=== PATIENT | male | born 1940 | race Caucasian/White ===

== ENCOUNTER 2022-09-17 06:47 | Emergency (ER) | payer OTHER ==
--- OUTSIDE RECORDS SUMMARY | 2022-09-17 07:03 | XMS REPORT | Continuity of Care Document ---
:1940 Author Organization [facility] t Address [address] [place] [address] Care Team Providers Name Role Phone [phone] Primary Care Physician Unavailable JACQUE ORDOÑEZ Attending Clinician Unavailable Jef Ashley MD Attending Clinician LEANDRO BATISTA Attending Clinician Unavailable Dewey Attending Clinician Unavailable Harriet Ervin Attending Clinician [phone] ANDRZEJ FIGUEROA Attending Clinician Unavailable ROGERIO PEREIRA Attending Clinician Unavailable ARELI NGUYEN Attending Clinician Unavailable PAMELA LLAMAS Attending Clinician Unavailable TY ECHEVERRIA Attending Clinician Unavailable CINDY REESE Attending Clinician Unavailable ULISES BUENROSTRO Attending Clinician Unavailable Dewey Admitting Clinician Unavailable Payers Payer Name Policy Type Policy Number Effective Date Expiration Date S franky HU[employer]NA CHOICE [id number] 2013 MEDICARE PPO 00:00:00 HUMANA PPO [id number] 2016 00:00:00 [facility] MEDICARE [id number] 2020 ADVANTAGE 00:00:00 [facility] [id number] 2021 (MEDICARE 00:00:00 REPLACEMENT/ADVANT AGE - PPO) Problems Condition Condition Condition Status Onset Resolution Last Treating Co mments Source Name Details Category Date Date Treatment Clinician Date Strain of Strain of Problem Active Aza hannah hamstring Hamstring 8-26 Orth ope tendon Tendon 00:00: dic 00 Sports Medicin e 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) 00:00: Hospita stenosis stenosis 00 l 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 8-10 st emia emia 00:00: Hospita 00 l Essential Essential Disease Active Met hodi hypertensi hypertensi 8-10 st on on 00:00: Hospita 00 l 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 [place] [facility] [place] 00:[facility]: [facility]osp[facility] 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 Allergies, Adverse Reactions, Alerts Allergy Allergy Status Severity Reaction(s) Onset Inactive Treating Comm ents Source Name Type Date Date Clinician ADHESIVE DRUG Active Other 0 MD TAPE-IVANA 5-23 Anderso ICONES 00:00: n 00 ADHESIVE DRUG Active Other 0 MD TAPE-IVANA 5-23 Anderso ICONES 00:00: n 00 ADHESIVE DRUG Active Other MD TAPE-IVANA 5-23 Anderso ICONES 00:00: n 00 ADHESIVE DRUG Active Other 2015- MD TAPE-IVANA 5-23 Anderso ICONES 00:00: n 00 ADHESIVE DRUG Active Other 2015-0 MD TAPE-IVANA 5-23 Anderso ICONES 00:00: n 00 ADHESIVE DRUG Active Other 2015-0 MD TAPE-IVANA 5-23 Anderso ICONES 00:00: n 00 ADHESIVE DRUG Active Other 2015-0 MD TAPE-IVANA 5-23 Anderso ICONES 00:00: n 00 ADHESIVE DRUG Active Other 2015-0 MD TAPE-IVANA 5-23 Anderso ICONES 00:00: n 00 ADHESIVE DRUG Active Other 2015-0 MD TAPE-IVANA 5-23 Anderso ICONES 00:00: n 00 ADHESIVE DRUG Active Other 2015-0 MD TAPE-IVANA 5-23 Anderso ICONES 00:00: n 00 ADHESIVE DRUG Active Other 2015-0 MD TAPE-IVANA 5-23 Anderso ICONES 00:00: n 00 ADHESIVE DRUG Active Other 2015-0 MD TAPE-IVANA 5-23 Anderso ICONES 00:00: n 00 ADHESIVE DRUG Active Other 2015-0 MD TAPE-IVANA 5-23 Anderso ICONES 00:00: n 00 ADHESIVE DRUG Active Other 2015-0 MD TAPE-IVANA 5-23 Anderso ICONES 00:00: n 00 ADHESIVE DRUG Active Other 2016-0 MD TAPE-IVANA 5-23 Anderso ICONES 00:00: n 00 ADHESIVE DRUG Active Other 2015-0 MD TAPE-IVANA 5-23 Anderso ICONES 00:00: n 00 ADHESIVE DRUG Active Other 2015-0 MD TAPE-IVANA 5-23 Anderso ICONES 00:00: n 00 ADHESIVE DRUG Active Other 2015-0 MD TAPE-IVANA 5-23 Anderso ICONES 00:00: n 00 ADHESIVE DRUG Active Other 2015-0 MD TAPE-IVANA 5-23 Anderso ICONES 00:00: n 00 ADHESIVE DRUG Active Other 2015-0 MD TAPE-IVANA 5-23 Anderso ICONES 00:00: n 00 ADHESIVE DRUG Active Other 2015-0 MD TAPE-IVANA 5-23 Anderso ICONES 00:00: n 00 ADHESIVE DRUG Active Other 2015-0 MD TAPE-IVANA 5-23 Anderso ICONES 00:00: n 00 ADHESIVE DRUG Active Other 2015-0 MD TAPE-IVANA 5-23 Anderso ICONES 00:00: n 00 ADHESIVE DRUG Active Other 2015-0 MD TAPE-IVANA 5-23 Anderso ICONES 00:00: n 00 ADHESIVE DRUG Active Other 0 MD TAPE-IVANA 5-23 Anderso ICONES 00:00: n 00 ADHESIVE DRUG Active Other 2015-0 MD TAPE-IVANA 5-23 Anderso ICONES 00:00: n 00 ADHESIVE DRUG Active Other 0 MD TAPE-IVANA 5-23 Anderso ICONES 00:00: n 00 ADHESIVE DRUG Active Other 0 MD TAPE-IVANA 5-23 Anderso ICONES 00:00: n 00 Family History Family Member Diagnosis Comments Start Date Stop Date Source Natural mother COPD [facility] Natural mother Osteoporosis [facility] t [facility] Natural father Other [facility] Maternal grandmother Cancer [facility] Social History Social Habit Start Date Stop Date Quantity Comments Source History of tobacco Current smoker [facility] Alcohol intake 2022-08-08 2022-08-08 Current drinker [facility] 00:00:00 00:00:00 of alcohol Hospital (finding) Cigarettes smoked 2022-02-07 2022-02-[address] current (pack per 00:00:00 00:00:00 Hospita l day) - Reported Tobacco use and 2022-02-07 2022-02-07 Smokeless tobacco [facility] exposure 00:00:00 00:00:00 non-user Hospital Sex Ass[birth year] At [birth year] [facility] 00:00:00 00:00:00 Hospital Smoking Status Start Date Stop Date Source Never Smoker [facility] Ex-smoker 2022-02-07 00:00:00 2022-02-07 00:00:00 [facility] Medications Ordered Filled Start Stop Current Ordering Indication Dosage Frequency Signature Comments Components Source Medication Medication Date Date Medication? Clinician (SIG) Name Name multivitami 2022- No Take by Vt thodi n-minerals- 2-08 02-[address] lutein 09:34: 00:00 Hospita tablet 01 :00 l cycloSPORIN Yes Apply to Vt thodi E 0.05 % [address] drops 09:23: Hospita 11 l vit 0 Yes 1{tbl} QD Take 1 Methodi C-E-cupric- 2-[address] zinc-lutein 09:23: mouth Hospi ta (PreserVisi 11 daily. l on Lutein) 226-90-0.8- 5 mg capsule aspirin Yes 81mg Take 1 Methodi (ECOTRIN) 2-08 tablet (81 st 81 MG 09:23: mg total) Hospita enteric 11 by mouth. l coated tablet fexofenadin Yes 180mg Take 1 Met hodi e (UJLIANA) 2-[address] 180 MG 09:23: (180 mg Hospita tablet 11 total) by l mouth as needed. cholecalcif Yes 2000U QD Take 1 Met hodi malcolm, 2-[address] vitamin D3, 09:23: (2,000 Hosp sherif 50 mcg 11 Units l (2,000 total) by unit) mouth capsule daily. Pt capsule takes 2 tabs. atorvastati Yes 40mg QD Take 1 Meth chloe n (LIPITOR) 7-25 tablet (40 st 40 mg 00:00: mg total) Hospita tablet 00 by mouth l nightly. Janumet XR Yes Take by Meth chloe 50-1,000 mg 7-[address] tablet, ER 00:00: Hospita multiphase 00 l 24 hr testosteron Yes APPLY 6 Met hodi e 12.5 mg/ 5-[address] 1.25 gram 00:00: TOPICALLY Hos fredy (1 %) gel 00 TO SKIN l in ONCE DAILY metered-dos e pump amLODIPine- 2011-07 Yes 1{capsu QD Take 1 M ethodi benazepriL 2-11 le} capsule by st (LOTREL) 00:00: mouth Hospita 10-20 mg 00 daily. l per capsule amlodipine amlodipine No amlodipine [facility] 10 10 10 Orthope mg-benazepr mg-benazepr mg-benazep dic il 20 mg il 20 mg ril 20 mg Sp orts capsule capsule capsule Medici n TAKE 1 TAKE 1 TAKE 1 e CAPSULE BY CAPSULE BY CAPSULE BY MOUTH ONCE MOUTH ONCE MOUTH ONCE DAILY IN DAILY IN DAILY IN THE MORNING THE MORNING THE MORNING atorvastati atorvastati No atorvastat [facility] n 40 mg n 40 mg in 40 mg Ortho pe tablet TAKE tablet TAKE tablet dic 1 TABLET BY 1 TABLET BY TAKE 1 Sports MOUTH AT MOUTH AT TABLET BY Me dicin BEDTIME BEDTIME MOUTH AT e BEDTIME cyclosporin cyclosporin No cyclospori Elke e 0.05 % e 0.05 % ne 0.05 % Or thope eye drops eye drops eye drops dic in a in a in a Sports dropperette dropperette dropperett Medicin INSTILL 1 INSTILL 1 e INSTILL e DROP INTO DROP INTO 1 DROP EACH EYE EACH EYE INTO EACH TWICE DAILY TWICE DAILY EYE TWICE DAILY Janumet XR Janumet XR No Janumet XR Elke 50 mg-1,000 50 mg-1,000 50 O rthope mg mg mg-1,000 dic tablet,exte tablet,exte mg S ports nded nded tablet,ext Medicin release release ended e TAKE 2 TAKE 2 release TABLETS BY TABLETS BY TAKE 2 MOUTH IN MOUTH IN TABLETS BY THE EVENING THE EVENING MOUTH IN THE EVENING testosteron testosteron No testostero Elke e 12.5 e 12.5 ne 12.5 Orthope mg/1.25 mg/1.25 mg/1.25 dic gram per gram per gram per Spo rts actuation actuation actuation Medicin (1%) (1%) (1%) e transdermal transdermal transderma gel pump gel pump l gel pump APPLY 6 APPLY 6 APPLY 6 PUMPS PUMPS PUMPS TOPICALLY TOPICALLY TOPICALLY TO SKIN TO SKIN TO SKIN ONCE DAILY ONCE DAILY ONCE DAILY triamcinolo triamcinolo No triamcinol [facility] ne ne one Orthope acetonide acetonide acetonide dic 0.1 % 0.1 % 0.1 % Sports topical topical topical Medici n cream APPLY cream APPLY cream e CREAM CREAM APPLY EXTERNALLY EXTERNALLY CREAM TO AFFECTED TO AFFECTED EXTERNALLY AREA ONCE AREA ONCE TO DAILY DAILY AFFECTED NEEDED NEEDED AREA ONCE DAILY NEEDED Vital Signs Vital Name Observation Time Observation Value Comments Source Height 2022-02-23 00:00:00 72 [in_i] [facility] BMI (Body Mass 2022-02-23 00:00:00 29.8 kg/m2 [facility] Body Weight 2022-02-23 00:00:00 220 [lb_av] [facility] WEIGHT 2020-08-25 10:08:09 100 kg WEIGHT 2020-05-04 10:51:39 102.4 kg Systolic blood 2022-08-08 15:14:00 137 mm[Hg] [facility] pressure Diastolic blood 2022-08-08 15:14:00 72 mm[Hg] [facility] pressure Heart rate 2022-08-08 15:14:00 57 /min [facility] Respiratory rate 2022-08-08 15:14:00 12 /min [facility] Body height 2022-08-08 15:14:00 182.9 cm [facility] Body weight 2022-08-08 15:14:00 101.515 kg [facility] BMI 2022-08-08 15:14:00 30.35 kg/m2 [facility] Oxygen saturation in 2022-08-08 15:14:00 96 /min [facility] Arterial blood by Pulse oximetry Procedures Procedure Date / Time Performing Clinician Source Performed ECG 12-LEAD 2022-08-08 15:26:00 [facility] ECG 12-LEAD 2022-02-07 13:38:00 [facility] TRANSTHORACIC 2022-01-26 00:00:00 [facility] ECHOCARDIOGRAM COMPLETE W CONT STRAIN 3D IF NEEDED Plan of Care Planned Activity Planned Date Details Comments Source Future Scheduled 2022-08-20 COVID-19 VACCINE (#1) [facility] Test 08:20:23 [code = COVID-19 VACCINE (#1)] Future Scheduled 2022-08-20 65+ [facility]OCOCC[address] [facility] Test 08:20:23 VACCINE (1 - PCV) [code = 65+ PNEUMOCOCCAL VACCINE (1 - PCV)] Future Scheduled 2022-08-20 DIABETES: RETINAL EYE [facility] Test 08:20:23 EXAM [code = DIABETES: RETINAL EYE EXAM] Future Scheduled 2022-08-20 [facility]IC [facility] 08:20:23 [code = DIABETIC FOOT EXAM] Future Scheduled 2022-08-20 URINE [facility]ALBUMIN [facility] Test 08:20:23 [code = URINE MICROALBUMIN] Future Scheduled 2022-08-20 Hepatitis C screening [facility] Test 08:20:23 (procedure) [code = 752755364] Future Scheduled 2022-08-20 SHINGLES VACCINES (1 [facility] Test 08:20:23 of 2) [code = SHINGLES VACCINES (1 of 2)] Future Scheduled 2022-08-20 INFLUENZA VACCINE [facility] Test 08:20:23 [code = INFLUENZA VACCINE] Encounters Start End Encounter Admission Attending Care Care Encounter Source Date/Time Date/Time Type Type Clinicians Facility Department ID 2020-01-18 Outpatient PENELOPE NEGRETE [id number] 13:22:48 Anderso n 2022-08-20 2022-08-20 Outpatient JACQUE ALONSO MDA, MDA [id number] 08:58:05 23:59:00 Kevon o debbie 2022-08-20 2022-08-20 Outpatient JACQUE ALONSO MDA, MDA [id number] 08:20:20 08:57:00 Kevon o debbie 2022-08-08 2022-08-08 Office Alvarado, 1.2.840.1 [id number] Methodi 09:30:00 09:46:17 Visit Jef Nelson 37294.1.[address] 3.430.2.7 Hospit a .3.374433 l .8 2022-08-08 2022-08-08 Travel 1.2.840.1 1.2.507.912 [id number] Methodi 00:00:00 00:00:[address] 3.430.2.7 0.2.7.3.698 Ho spita .3.429235 084.8 l .8 2022-08-08 2022-08-08 Outpatient ALVARADO [facility] [id number] [place] 00:00:00 00:00:00 JEF Sandoval [facility] 2022-06-01 2022-06-01 Outpatient LEANDRO OSMAN MDA, MDA [id number] 13:22:31 13:56:43 Kevon lewis 2022-02-23 2022-02-23 Outpatient FOG_Burke_R AOSM AOSM [id number] [facility] 00:00:00 00:00:00 Isaak [id number] Ortho pe dic Sports Medicin e 2022-02-23 2022-02-23 Harriet H AOSM [place] - Ortho [place] 00:00:00 00:00:00 Anne Ervin - [place]: [id number] FOG_Ofc dic [facility], Medici n [address], [place] [address] , Ph. [phone] 2022-02-23 2022-02-23 Outpatient Karrimarcela CLEM AOSM [id number] c-2 00:00:00 00:00:00 Harriet H [id number] 2022-02-22 2022-02-22 Outpatient FOG_Burke_R AOSM AOSM [id number] [facility] 00:00:00 00:00:00 Isaak [id number] Ortho pe dic Sports Medicin e 2022-02-19 2022-02-19 Outpatient FOG_Burke_R AOSM AOSM [id number] [facility] 00:00:00 00:00:00 Isaak [id number] Ortho pe dic Sports Medicin e 2022-02-15 2022-02-15 Outpatient TONYA FIGUEROA MDA MDA [id number] 11:44:37 12:10:17 ANDRZEJ lewis 2022-02-13 2022-02-13 Outpatient JACQUE ALONSO MDA MDA [id number] 06:25:09 23:59:00 Kevon o n 2022-02-13 2022-02-13 Outpatient JACQUE ALONSO MDA MDA [id number] 06:41:29 06:41:29 Kevon o n 2022-02-07 2022-02-07 Office Younis, 1.2.840.1 [id number] [id number] Methodi 08:30:00 09:16:36 Visit Jef Nelson 09087.1.[address] 3.430.2.7 Hospit a .3.227477 l .8 2022-02-07 2022-02-07 Travel 1.2.840.1 1.2.111.099 [id number] Methodi 00:00:00 00:00:[address] 3.430.2.7 0.2.7.3.698 Ho spita .3.989901 084.8 l .8 2022-02-07 2022-02-07 Outpatient YOUNIS, [facility] [id number] [place] 00:00:00 00:00:[address]EF [address] 2022-01-26 2022-01-26 Orders Younis, 1.2.840.1 [id number] 2099 [id number] Methodi 00:00:00 00:00:00 Only Jef Nelson 81406.1.[address] 3.430.2.7 Hospit a .3.488912 l .8 2022-01-23 2022-01-23 Travel 1.2.840.1 1.2.281.743 [id number] Methodi 00:00:00 00:00:[address] 3.430.2.7 0.2.7.3.698 Ho spita .3.237272 084.8 l .8 2022-01-23 2022-01-23 Outpatient [facility] [id number] [place] 00:00:00 00:00:[address] 2022-01-11 2022-01-11 Outpatient ROGERIO ENGLE MDA MDA [id number] MD 12:46:31 14:30:20 Kevon o debbie 2021-08-10 2021-08-10 Outpatient TONYA FIGUEROA, MDA MDA [id number] MD 13:38:01 13:49:50 ANDRZEJ lewis 2021-08-02 2021-08-02 Outpatient TONYA NGUYEN, MDA MDA [id number] MD 10:26:29 23:59:00 ARELI Lund o n 2021-08-02 2021-08-02 Outpatient TONYA NGUYEN, MDA MDA [id number] MD 10:11:13 10:25:00 ARELI Lund o debbie 2021-05-08 2021-05-08 Outpatient TONYA PEREIRA AURZAIRE MDA MDA [id number] MD 10:04:00 11:55:04 Kevon lewis 2021-01-31 2021-01-31 Outpatient TONYA FIGUEROA, MDA MDA [id number] MD 14:14:49 14:26:19 ANDRZEJ Lund o n 2021-01-30 2021-01-30 Outpatient TONYA LLAMAS, MDA MDA [id number] MD 10:01:02 23:59:00 PAMELA Hernández so n 2021-01-30 2021-01-30 Outpatient TONYA LLAMAS, MDA MDA [id number] MD 09:47:17 10:00:00 PAMELA Hernández so n 2020-08-25 2020-08-25 Outpatient TONYA ECHEVERRIA, MDA MDA [id number] MD 08:36:22 23:59:00 MOUHAMMED Danilo rso n 2020-08-25 2020-08-25 Outpatient TONYA HABRA, MDA MDA [id number] MD 08:36:07 23:59:00 MOUHAMMED Danilo rso n 2020-08-25 2020-08-25 Outpatient TONYA GRO, MDA MDA [id number] MD 09:41:28 11:03:39 CINDY Lnud o debbie 2020-08-03 2020-08-03 Outpatient TONYA FIGUEROA, MDA MDA [id number] MD 09:54:02 10:34:13 ANDRZEJ lewis 2020-08-01 2020-08-01 Outpatient EL HENRY, MDA MDA [id number] 10:46:32 23:59:00 ANDRZEJ lewis 2020-08-01 2020-08-01 Outpatient EL HENRY, MDA MDA [id number] 11:38:12 11:38:12 ANDRZEJ lewis 2020-07-22 2020-07-22 Outpatient ALVARADO Jimmy [facility] [id number] [place] 00:00:00 00:00:00 JEF [address] 2020-07-21 2020-07-21 Outpatient EL HENRY, MDA MDA [id number] 00:00:00 00:00:00 ANDRZEJ lewis 2020-07-20 2020-07-20 Outpatient EL HENRY, MDA MDA [id number] 00:00:00 00:00:00 ANDRZEJ lewis 2020-07-20 2020-07-20 Outpatient EL HENRY, MDA MDA [id number] 00:00:00 00:00:00 ANDRZEJ lewis 2020-05-04 2020-05-04 Outpatient ROGERIO ENGLE MDA MDA [id number] 10:14:19 11:54:27 Kevon lewsi 2020-01-19 2020-01-19 Outpatient EL HENRY, MDA MDA [id number] 12:39:11 13:03:40 ANDRZEJ lewis 2020-01-19 2020-01-19 Outpatient EL HENRY, MDA MDA [id number] 00:00:00 00:00:00 ANDRZEJ lewis 2020-01-13 2020-01-13 Outpatient EL PORTER, MDA MDA [id number] 06:19:52 23:59:00 ULISES lewis 2020-01-13 2020-01-13 Outpatient EL PORTER, MDA MDA [id number] 06:10:27 06:18:00 ULISES lewis Results This patient has no known results.
[2022-09-17 07:30] LABS: Absolute Lymphocytes (CBC) 1.4 K/uL (0.7-4.9); Hematocrit 43.2 % (39.6-49.0); Lymphocytes % 21.5 % (15.3-44.8); MCV 91.3 fL (80-100); MPV 9.9 fL (7.6-11.3); RBC Red Blood Cell Count 4.74 M/uL (4.33-5.43)
[2022-09-17 07:33] LABS: Protime INR 1.01
[2022-09-17] MEDS ORDERED: NA CHLORIDE 0.9% 500 ML ONE (07:50)
[2022-09-17] MEDS ORDERED: NA CHLORIDE 0.9% 1,000 ML ONE (07:50)
[2022-09-17] MEDS ORDERED: MECLIZINE HCL 12.5 MG TAB ONE (07:50)
[2022-09-17] MEDS ORDERED: ONDANSETRON 4 MG/2 ML VIAL ONE (07:50)
--- NOTE | 2022-09-17 08:49 | RAD REPORT ---
EXAM DESCRIPTION: MRI - Brain Wo Cont - 09/17/2022 8:24 am CLINICAL HISTORY: DIZZINESS Headache, drowsiness, CVA symptomology COMPARISON: Ct Stroke Brain Wo Cont dated 09/17/2022 TECHNIQUE: Multi-sequence, multiplanar MR imaging of the brain was performed without contrast. FINDINGS: No intracranial hemorrhage, hydrocephalus or extra-axial fluid collections.Moderate genera lized brain atrophy with mild periventricular and deep white matter chronic microvascular ischemia. N o edema or shift of midline structures. No findings to suspect brain mass. DWI is negative for acute CVA. Midline structures are normally formed. Mastoid air cells and paranasal sinuses are clear. IMPRESSION: Negative for acute CVA or other acute intracranial abnormality.
--- NOTE | 2022-09-17 08:53 | RAD REPORT ---
EXAM DESCRIPTION: - CP - 09/17/2022 7:54 am CLINICAL HISTORY: DIZZINESS Headache, drowsiness, CVA symptomology COMPARISON: No comparisons TECHNIQUE: Real-time sonographic evaluation of both carotid systems was performed. Doppler interroga tion was performed with waveform tracing bilaterally. FINDINGS: Normal high resistance waveforms are noted in both external carotid arteries. The common c arotid arteries and internal carotid arteries show normal low resistance waveforms. Moderate hard plaque is seen in both carotid bulbs. Peak systolic and end diastolic velocity values a nd the ICA/CCA ratios are in the non-hemodynamically significant range. Left vertebral artery not well visualized. Normal forward flow right vertebral artery. IMPRESSION: Moderate hard plaque is noted in both carotid bulbs. No evidence of a hemodynamically significant stenosis.
--- NOTE | 2022-09-17 08:58 | RAD REPORT ---
EXAM DESCRIPTION: RAD - Chest Single View - 09/17/2022 8:28 am CLINICAL HISTORY: COUGH Chest pain. COMPARISON: No comparisons FINDINGS: Portable technique limits examination quality. The lungs are grossly clear. The heart is normal in size. No displaced fractures. IMPRESSION: No acute intrathoracic process suspected.
[2022-09-17 09:17] LABS: ALT/SGPT 34 U/L (16-61); AST/SGOT 14 U/L (15-37); Albumin 3.5 g/dL (3.4-5.0); Alkaline Phosphatase 70 U/L (45-117); BUN Blood Urea Nitrogen 20 mg/dL (7-18); Bicarbonate 28 mEq/L (21-32); Bilirubin Total 0.4 mg/dL (0.2-1.0); Glomerular Filtration Rate 68 ml/min (=/>90); Glucose Level 208 mg/dL (74-106); Magnesium 2.2 mg/dL (1.6-2.4); NT PRO-BNP 55 pg/mL (<450); Potassium 4.6 mEq/L (3.5-5.1); Protein, Total 6.8 g/dL (6.4-8.2); Sodium Level 138 mEq/L (136-145); Troponin High Sensitivity 6.1 pg/mL (<58.9)
[2022-09-17 09:24] LABS: Bilirubin Direct < 0.1 mg/dL (0-0.2)
[2022-09-17] MEDS ORDERED: dexAMETHasone 10 MG/ML VIAL ONE (10:29)
--- NOTE | 2022-09-17 10:44 | EDPHYS ---
Physician Documentation [facility] Name: Yung Holman Age: 81 yrs Sex: Male : 1940 Arrival Date: 09/17/2022 Time: 07:06 Bed 7 Private MD: ED Physician Ricky Romero HPI: 09/17 07:35 This 81 yrs old Male presents to ER via EMS with complaints of Dizziness. reese 07:35 This 81 yrs old Male presents to ER via EMS with complaints of Dizziness. reese 07:35 The patient presents with dizziness, generalized weakness. reese Historical: - Allergies: 07:08 No Known Allergies; jb4 - PMHx: 07:08 DM; jb4 - Immunization history:: Adult Immunizations unknown. - Social history:: Smoking status: Patient denies any tobacco usage or history of. Patient uses alcohol, occasionally. ROS: 07:40 Constitutional: Negative for fever, chills, and weight loss, Eyes: Negative for injury, reese pain, redness, and discharge, ENT: Negative for injury, pain, and discharge, Neck: Negative for injury, pain, and swelling, Cardiovascular: Negative for chest pain, palpitations, and edema, Respiratory: Negative for shortness of breath, cough, wheezing, and pleuritic chest pain, Abdomen/GI: Negative for abdominal pain, nausea, vomiting, diarrhea, and constipation, Back: Negative for injury and pain, : Negative for injury, bleeding, discharge, and swelling, MS/Extremity: Negative for injury and deformity, Skin: Negative for injury, rash, and discoloration, Psych: Negative for depression, anxiety, suicide ideation, homicidal ideation, and hallucinations, Allergy/Immunology: Negative for hives, rash, and allergies, Endocrine: Negative for neck swelling, polydipsia, polyuria, polyphagia, and marked weight changes, Hematologic/Lymphatic: Negative for swollen nodes, abnormal bleeding, and unusual bruising. 07:40 Neuro: Positive for dizziness. Exam: 07:40 Constitutional: This is a well developed, well nourished patient who is awake, alert, reese and in no acute distress. Head/Face: Normocephalic, atraumatic. ENT: Nares patent. No nasal discharge, no septal abnormalities noted. Tympanic membranes are normal and external auditory canals are clear. Oropharynx with no redness, swelling, or masses, exudates, or evidence of obstruction, uvula midline. Mucous membranes moist. Neck: Trachea midline, no thyromegaly or masses palpated, and no cervical lymphadenopathy. Supple, full range of motion without nuchal rigidity, or vertebral point tenderness. No Meningismus. Chest/axilla: Normal chest wall appearance and motion. Nontender with no deformity. No lesions are appreciated. Cardiovascular: Regular rate and rhythm with a normal S1 and S2. No gallops, murmurs, or rubs. Normal PMI, no JVD. No pulse deficits. Respiratory: Lungs have equal breath sounds bilaterally, clear to auscultation and percussion. No rales, rhonchi or wheezes noted. No increased work of breathing, no retractions or nasal flaring. Abdomen/GI: Soft, non-tender, with normal bowel sounds. No distension or tympany. No guarding or rebound. No evidence of tenderness throughout. Back: No spinal tenderness. No costovertebral tenderness. Full range of motion. Male : Normal genitalia with no discharge or lesions. Skin: Warm, dry with normal turgor. Normal color with no rashes, no lesions, and no evidence of cellulitis. MS/ Extremity: Pulses equal, no cyanosis. Neurovascular intact. Full, normal range of motion. Psych: Awake, alert, with orientation to person, place and time. Behavior, mood, and affect are within normal limits. 07:40 Eyes: Pupils: equal, round, and reactive to light and accomodation, Extraocular movements: intact throughout, Conjunctiva: normal, no acute changes, no chemosis, no excoriation, no exudate, no injection, no subconjunctival hemorrhage no abnormal tearing, Corneas: are normal, no acute changes, no evidence of abrasion, no foreign body, Sclera: no appreciated abnormality, no acute changes, Lids and lashes: appear normal, no acute changes, Nystagmus: nystagmus with fast component noted, bilaterally. 07:40 Cardiovascular: Rate: bradycardic, Rhythm: regular, Pulses: Pulses are 4+ in bilateral radial, brachial, femoral, popliteal, posterior tibial and and dorsalis pedis arteries.. Heart sounds: normal, Edema: is not appreciated, JVD: is not appreciated, Bilateral blood pressure: is equal. 07:40 ECG was reviewed by the Attending Physician. Vital Signs: 07:09 BP 136 / 60; Pulse 68; Resp 16; Temp 98(O); Pulse Ox 98% on R/A; Weight 97.98 kg (R); jb4 Height 6 ft. 0 in. (R); Pain 0/10; 08:30 BP 130 / 59; Pulse 56; Resp 16; Pulse Ox 97% on R/A; vg1 09:00 BP 131 / 60; Pulse 55; Resp 15; Pulse Ox 97% on R/A; vg1 09:30 BP 128 / 62; Pulse 53; Resp 16; Pulse Ox 99% on R/A; vg1 10:00 BP 128 / 61; Pulse 61; Resp 16; Pulse Ox 100% on R/A; vg1 11:00 BP 128 / 57; Pulse 60; Resp 16; Pulse Ox 98% on R/A; vg1 07:09 Body Mass Index 29.29 (97.98 kg, 182.88 cm) jb4 07:09 Pain Scale: Adult jb4 MDM: 07:09 Patient medically screened. reese 07:44 Differential diagnosis: cardiac arrhythmia, CVA, generalized weakness, GI bleed, reese hypovolemia, idiopathic dizziness, near-syncope. Data reviewed: vital signs, nurses notes, lab test result(s), EKG, radiologic studies, CT scan, doppler, plain films. Consideration of Admission/Observation Escalation of care including admission/observation considered. Management of patient was discussed with the following: Radiology Asst: radiology, neg ct. I considered the following discharge prescriptions or medication management in the emergency department Medications were administered in the Emergency Department. See MAR. Historians other than the Patient: Spouse/Significant Other: . Care significantly affected by the following chronic conditions: Diabetes. 09/17 07:18 Order name: Basic Metabolic Panel; Complete Time: 10:15 reese 09/17 07:18 Order name: CBC with Diff; Complete Time: 08:00 reese 09/17 07:18 Order name: LFT's; Complete Time: 10:15 reese 09/17 07:18 Order name: Magnesium; Complete Time: 10:15 reese 09/17 07:18 Order name: NT PRO-BNP; Complete Time: 10:15 reese 09/17 07:18 Order name: PT-INR; Complete Time: 08:00 reese 09/17 07:18 Order name: Troponin HS; Complete Time: 10:15 [facility] 09/17 11:08 Order name: Urine Dipstick-Ancillary; Complete Time: 11:13 EDMS 09/17 07:18 Order name: XRAY Chest (1 view); Complete Time: 09:03 reese 09/17 07:18 Order name: US Carotid Artery Bilateral; Complete Time: 09:03 reese 09/17 07:18 Order name: CT Stroke Brain w/o Contrast 09/17 08:25 Order name: Brain Wo Cont; Complete Time: 08:52 EDMS 09/17 09:20 Order name: Echo w/ Doppler 09/17 07:18 Order name: EKG; Complete Time: 07:19 reese 09/17 07:18 Order name: Cardiac monitoring; Complete Time: 07:40 [facility] 09/17 07:18 Order name: EKG - Nurse/Tech; Complete Time: 07:40 [facility] 09/17 07:18 Order name: IV Saline Lock; Complete Time: 07:40 [facility] 09/17 07:18 Order name: Labs collected and sent; Complete Time: 07:40 [facility] 09/17 07:18 Order name: O2 Per Protocol; Complete Time: 07:40 [facility] 09/17 07:18 Order name: O2 Sat Monitoring; Complete Time: 07:40 [facility] 09/17 07:18 Order name: Urine Dipstick-Ancillary (obtain specimen); Complete Time: 11:25 [facility] 09/17 07:48 Order name: Labs - recollect needed: recollect chemistries/ hemolyzed per Anabella; eb Complete Time: 08:41 09/17 10:42 Order name: Misc. Order: ua please; Complete Time: 11:25 [facility] EC:40 Rate is 55 beats/min. Rhythm is regular. QRS [place] is Normal. WA interval is normal. QRS reese interval is normal. QT interval is normal. No Q waves. T waves are Normal. No ST changes noted. Clinical impression: Sinus bradycardia and No evidence of ischemia. Interpreted by me. Reviewed by me. Administered Medications: 08:37 Drug: NS 0.9% IV 500 ml Route: IV; Rate: bolus; Site: right antecubital; vg1 09:50 Follow up: IV Status: Completed infusion; IV Intake: 500ml vg1 08:37 Drug: NS 0.9% IV 1000 ml Route: IV; Rate: 125 ml/hr; Site: right antecubital; vg1 11:27 Follow up: IV Status: Completed infusion; IV Intake: 350ml vg1 08:38 Drug: Ondansetron IVP 4 mg Route: IVP; Site: right antecubital; vg1 09:50 Follow up: Response: No adverse reaction vg1 08:40 Drug: Meclizine PO 25 mg Route: PO; vg1 09:50 Follow up: Response: No adverse reaction vg1 08:40 Drug: Meclizine PO 25 mg Route: PO; vg1 09:49 Follow up: Response: No adverse reaction vg1 10:35 Drug: Decadron - Dexamethasone IVP 10 mg Route: IVP; Site: right antecubital; vg1 11:27 Follow up: Response: No adverse reaction vg1 Disposition Summary: 09/17/22 10:43 Discharge Ordered Location: Home reese Problem: new reese Symptoms: have improved reese Condition: Stable reese Diagnosis - Benign paroxysmal vertigo, unspecified ear reese - Dizziness and giddiness reese - Bradycardia, unspecified reese - Type 2 diabetes mellitus with hyperglycemia reese Followup: reese - With: Private Physician - When: 2 - 3 days - Reason: Recheck today's complaints, Continuance of care, Re-evaluation by your physician Followup: reese - With: - When: 2 - 3 days - Reason: Recheck today's complaints, Re-evaluation by your physician Discharge Instructions: - Discharge Summary Sheet reese - Benign Positional Vertigo reese - Dizziness reese - Motion Sickness reese - Vertigo reese - Aspirin and Your Heart reese - Dizziness, [id number] reese Forms: - Medication Reconciliation Form reese - Thank You Letter reese - Antibiotic Education reese - Prescription Opioid Use reese Prescriptions: - Meclizine 25 mg Oral Tablet - take 1 tablet by ORAL route every 8 hours As needed; 30 tablet; Refills: 0, reese Product Selection Permitted - Zofran 4 mg Oral Tablet - take 1 tablet by ORAL route every 12 hours As needed; 20 tablet; Refills: 0, reese Product Selection Permitted Signatures: Dispatcher [employer] Ricky Dick MD MD cha Bryson, James RN RN jb4 Lauryn Pastrana Victoria RN RN vg1 Corrections: (The following items were deleted from the chart) 08:25 07:19 MR STROKE PROTOCOL+MRI.RAD.BRZ ordered. EDMS EDMS
--- NOTE | 2022-09-17 10:44 | ER ---
Nurse's Notes [facility] Name: Yung Holman Age: 81 yrs Sex: Male : 1940 Arrival Date: 09/17/2022 Time: 07:06 Bed 7 Private MD: Diagnosis: Benign paroxysmal vertigo, unspecified ear;Dizziness and giddiness;Bradycardia, unspecified;Type 2 diabetes mellitus with hyperglycemia Presentation: 09/17 07:06 Chief complaint: Patient states: Pt was at the gym, called EMS due to thinking he was jb4 going to pass out and felt light headed and dizzy. BGL was 204. Coronavirus screen: At this time, the client does not indicate any symptoms associated with coronavirus-19. Ebola Screen: No symptoms or risks identified at this time. Initial Sepsis Screen: Does the patient meet any 2 criteria? No. Patient's initial sepsis screen is negative. Does the patient have a suspected source of infection? No. Patient's initial sepsis screen is negative. Risk Assessment: Do you want to hurt yourself or someone else? Patient reports no desire to harm self or others. Onset of symptoms was September 17, 2022. Transition of care: patient was not received from another setting of care. 07:06 Method Of Arrival: EMS: [facility] jb4 07:06 Acuity: VALERIE 3 jb4 Historical: - Allergies: 07:08 No Known Allergies; jb4 - PMHx: 07:08 DM; jb4 - Immunization history:: Adult Immunizations unknown. - Social history:: Smoking status: Patient denies any tobacco usage or history of. Patient uses alcohol, occasionally. Screenin:30 [facility] ED Fall Risk Assessment (Adult) History of falling in the last 3 months, vg1 including since admission No falls in past 3 months (0 pts) Confusion or Disorientation No (0 pts) Intoxicated or Sedated No (0 pts) Impaired Gait No (0 pts) Mobility Assist Device Used No (0 pt) Altered Elimination No (0 pt) Score/Fall Risk Level 0 - 2 = Low Risk Oriented to surroundings, Maintained a safe environment, Educated pt \\T\\ family on fall prevention, incl call for assistance when getting out of bed, Assessed \\T\\ reinforced patient's understanding of fall precautions. Abuse screen: Denies threats or abuse. Denies injuries from another. Nutritional screening: No deficits noted. Tuberculosis screening: No symptoms or risk factors identified. Assessment: 07:40 Reassessment: To bedside to administer medications, pt currently at radiology. . aa5 08:30 General: Appears in no apparent distress. comfortable, Behavior is calm, cooperative. vg1 Pain: Denies pain. Neuro: Level of Consciousness is awake, alert, obeys commands, Oriented to person, place, time, situation, Reports dizziness, lightheaded. Cardiovascular: Patient's skin is warm and dry. Respiratory: Airway is patent Respiratory effort is even, unlabored. GI: Abdomen is round non-distended, Patient currently denies nausea, vomiting. : No signs and/or symptoms were reported regarding the genitourinary system. EENT: No signs and/or symptoms were reported regarding the EENT system. Derm: Skin is pink, warm \\T\\ dry. Musculoskeletal: Circulation, motion, and sensation intact. 09:48 Reassessment: Patient appears in no apparent distress at this time. Patient and/or vg1 family updated on plan of care and expected duration. Pain level reassessed. Patient is alert, oriented x 3, equal unlabored respirations, skin warm/dry/pink. Pt stated, "im feeling a little better but then again I havnt moved much, not too sure if that medicine helped". 09:48 Reassessment: ECHO at bedside. vg1 10:07 Reassessment: ECHO completed at bedside. vg1 10:43 Reassessment: Pt up for d/c, currently awaiting for pt to give UA before d/c. vg1 11:26 Reassessment: Patient appears in no apparent distress at this time. Patient and/or vg1 family updated on plan of care and expected duration. Pain level reassessed. Patient is alert, oriented x 3, equal unlabored respirations, skin warm/dry/pink. Patient denies pain at this time. Patient states feeling better. Vital Signs: 07:09 BP 136 / 60; Pulse 68; Resp 16; Temp 98(O); Pulse Ox 98% on R/A; Weight 97.98 kg (R); jb4 Height 6 ft. 0 in. (R); Pain 0/10; 08:30 BP 130 / 59; Pulse 56; Resp 16; Pulse Ox 97% on R/A; vg1 09:00 BP 131 / 60; Pulse 55; Resp 15; Pulse Ox 97% on R/A; vg1 09:30 BP 128 / 62; Pulse 53; Resp 16; Pulse Ox 99% on R/A; vg1 10:00 BP 128 / 61; Pulse 61; Resp 16; Pulse Ox 100% on R/A; vg1 11:00 BP 128 / 57; Pulse 60; Resp 16; Pulse Ox 98% on R/A; vg1 07:09 Body Mass Index 29.29 (97.98 kg, 182.88 cm) jb4 07:09 Pain Scale: Adult jb4 ED Course: 07:06 Patient arrived in ED. aa5 07:08 Triage completed. jb4 07:09 Ricky Romero MD is Attending Physician. reese 07:10 Arm band placed on right wrist. jb4 07:29 CT Stroke Brain w/o Contrast In Process Unspecified. EDMS 07:56 US Carotid Artery Bilateral In Process Unspecified. EDMS 08:25 Brain Wo Cont In Process Unspecified. EDMS 08:25 Carolee Ibarra, RN is Primary Nurse. vg1 08:30 XRAY Chest (1 view) In Process Unspecified. EDMS 08:30 Patient has correct armband on for positive identification. Bed in low position. Call vg1 light in reach. Side rails up X 1. Adult w/ patient. Client placed on continuous cardiac and pulse oximetry monitoring. NIBP monitoring applied. 08:30 Maintain EMS IV. Dressing intact. Good blood return noted. Site clean \\T\\ dry. Gauge \\T\\ vg 1 site: 20. Flushed right antecubital. 10:43 Tera Spring MD is Referral Physician. reese 11:27 No provider procedures requiring assistance completed. IV discontinued, intact, vg1 bleeding controlled, No redness/swelling at site. Pressure dressing applied. Administered Medications: 08:37 Drug: NS 0.9% IV 500 ml Route: IV; Rate: bolus; Site: right antecubital; vg1 09:50 Follow up: IV Status: Completed infusion; IV Intake: 500ml vg1 08:37 Drug: NS 0.9% IV 1000 ml Route: IV; Rate: 125 ml/hr; Site: right antecubital; vg1 11:27 Follow up: IV Status: Completed infusion; IV Intake: 350ml vg1 08:38 Drug: Ondansetron IVP 4 mg Route: IVP; Site: right antecubital; vg1 09:50 Follow up: Response: No adverse reaction vg1 08:40 Drug: Meclizine PO 25 mg Route: PO; vg1 09:50 Follow up: Response: No adverse reaction vg1 08:40 Drug: Meclizine PO 25 mg Route: PO; vg1 09:49 Follow up: Response: No adverse reaction vg1 10:35 Drug: Decadron - Dexamethasone IVP 10 mg Route: IVP; Site: right antecubital; vg1 11:27 Follow up: Response: No adverse reaction vg1 Medication: 08:30 VIS not applicable for this client. vg1 Intake: 09:50 IV: 500ml; Total: 500ml. vg1 11:27 IV: 350ml; Total: 850ml. vg1 Outcome: 10:43 Discharge ordered by . reese 11:26 Discharged to home via wheelchair, with family. vg1 11:26 Condition: good 11:26 Discharge instructions given to patient, family, Instructed on discharge instructions, follow up and referral plans. medication usage, Demonstrated understanding of instructions, follow-up care, medications, Prescriptions given X 2. 11:27 Patient left the ED. vg1 Signatures: Dispatcher [employer] EDMS Ricky Romero MD MD cha Calderon, Audri, RN RN aa5 Bob Bonner, YARITZA RN Carolee Campbell, RN RN vg1 Corrections: (The following items were deleted from the chart) 08:38 07:40 Denita Carty RN is Primary Nurse. aa5 aa5 08:38 08:25 Primary Nurse role handed off by Denita Carty RN vg1 aa5
--- NOTE | 2022-09-17 11:03 | RAD REPORT ---
EXAM DESCRIPTION: CT Head/Brain Without Contrast 09/17/2022 at 7: 28 AM CLINICAL HISTORY: Stroke alert COMPARISON: None. TECHNIQUE: Head/brain axial images acquired without contrast. Coronal and sagittal reformats created . Exam performed according to departmental dose-optimization program which includes automated exposur e control, adjustment of mA and/or kV according to patient size, and/or use of iterative reconstructi on technique. FINDINGS: No midline shift, mass effect, intracranial hemorrhage, or hydrocephalus. Partially-imaged mild left maxillary sinus opacification. Mastoid air cells clear. No skull fracture or significant skull lesion. Calcified atherosclerotic intracranial internal carotid and vertebral arteries. Both lenses show postsurgical changes (intraocular lens implant). IMPRESSION: No CT evidence of acute intracranial abnormality. If there remains strong clinical suspicion of acute ischemic infarct, then MR brain/head recommended (if there are no contraindications). Dr. Ricky Romero is notified of findings on 09/17/2022 at 8:47 AM ET. Electronically signed by: Terrell Vasquez MD 09/17/2022 7:50 AM CDT Due to temporary technical issues with the PACS/Fluency reporting system, reports are being signed by the in house radiologists without review as a courtesy to insure prompt reporting. The interpreting radiologist is fully responsible for the content of the report.
[2022-09-17 11:07] LABS: Urine Blood Negative (Negative); Urine Glucose 2+ (Negative); Urine Protein Negative (Negative); Urine Specific Gravity 1.015 (1.005-1.030); Urine pH 5.5 (5.0-7.0)
--- NOTE | 2022-09-18 13:08 | ECHO ---
HEIGHT: 6 ft 0 in WEIGHT: 216 lb 0 oz DATE OF STUDY: 09/17/[address]: Ricky Romero MD 2-DIMENSIONAL: YES M.MODE: YES DOPPLER: YES COLOR FLOW: YES TDS: PORTABLE: YES DEFINITY: BUBBLE STUDY: DIAGNOSIS: AORTIC STENOSIS CARDIAC HISTORY: CATHERIZATION: SURGERY: PROSTHETIC VALVE: PACEMAKER: MEASUREMENTS (cm) DIASTOLIC (NORMALS) SYSTOLIC (NORMALS) IVSd 1.0 (0.6-1.2) LA Diam 2.8 (1.9-4.0) LVEF 53% LVIDd 5.5 (3.5-5.7) LVIDs 4.0 (2.0-3.5) %FS 28% LVPWd 1.1 (0.6-1.2) Ao Diam 3.1 (2.0-3.7) 2 DIMENSIONAL ASSESSMENT: RIGHT ATRIUM: NORMAL LEFT ATRIUM: NORMAL RIGHT VENTRICLE: NORMAL LEFT VENTRICLE: NORMAL TRICUSPID VALVE: NORMAL MITRAL VALVE: NORMAL PULMONIC VALVE: NORMAL AORTIC VALVE: NORMAL PERICARDIAL EFFUSION: NONE AORTIC ROOT: NORMAL LEFT VENTRICULAR WALL MOTION: NORMAL DOPPLER/COLOR FLOW: NORMAL COMMENTS: 1. POOR WINDOWS 2. NORMAL LEFT VENTRICULAR EJECTION FRACTION 55-60% 3. NORMAL RIGHT VENTRICULAR FUNCTION TECHNOLOGIST: COCO GONZÁLES
== END 2022-09-17 11:27 | disposition home or self-care (01) ==
LOC: ER 06:47
DX: H81.10 Benign paroxysmal vertigo, unspecified ear (principal); E11.65 Type 2 diabetes mellitus with hyperglycemia; R00.1 Bradycardia, unspecified
CPT/HCPCS: 93005; 93306; 85025; 80048; 36415; 83735; 85610; 80076; 81003; 84484; 83880; 70450; 71045; 93880; 70551; J8597; J1100; J2405; J7040; J7030

== ENCOUNTER 2023-04-05 05:02 | Emergency (ER) | payer OTHER ==
--- OUTSIDE RECORDS SUMMARY | 2023-04-05 05:06 | XMS REPORT | Continuity of Care Document ---
:1940 Author Organization [facility] t Address [address] [facility] [address] [place] [address] Care Team Providers Name Role Phone [phone] Primary Care Physician Unavailable Jef Ashley MD Attending Clinician Yaima Urias MA Attending Clinician Unavailable JACQUE ORDOÑEZ Attending Clinician Unavailable LEANDRO BATISTA Attending Clinician Unavailable Dewey Attending Clinician Unavailable Harriet Ervin Attending Clinician [phone] ANDRZEJ FIGUEROA Attending Clinician Unavailable ROGERIO PEREIRA Attending Clinician Unavailable ARELI NGUYEN Attending Clinician Unavailable PAMELA LLAMAS Attending Clinician Unavailable TY ECHEVERRIA Attending Clinician Unavailable CINDY REESE Attending Clinician Unavailable ULISES BUENROSTRO Attending Clinician Unavailable Dewey Admitting Clinician Unavailable Payers Payer Name Policy Type Policy Number Effective Date Expiration Date S franky [employer] CHOICE [id number] 2013 MEDICARE PPO 00:00:00 [employer]NA PPO [id number] 2016 00:00:00 [facility] MEDICARE [id number] 2020 ADVANTAGE 00:00:00 [facility] [id number] 2021 (MEDICARE 00:00:00 REPLACEMENT/ADVANT AGE - PPO) [...] ethodi 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 hoh hoh 00:00: 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 Allergies, Adverse Reactions, Alerts Allergy Allergy Status Severity Reaction(s) Onset Inactive Treating Comm ents Source Name Type Date Date Clinician ADHESIVE DRUG Active Other MD TAPE-IVANA 5-23 [...] TAPE-IVANA 5-23 Anderso ICONES 00:00: n 00 Adhesive Propensi Active Other (See 20160 Blistered Methodi Tape-Ivana ty to Comments) 5-[address] icones adverse 00:00: Hospita reaction 00 l s to drug ADHESIVE DRUG Active Other 2015-0 MD TAPE-IVANA [...] Comments Start Date Stop Date Source Natural father [facility] Maternal grandmother Cancer [facility] Natural mother COPD [facility] Natural mother [facility]opor[facility] Social History Social Habit Start Date Stop Date Quantity Comments Source History of tobacco Cigarette Smoker [facility] Alcohol intake 2023-02-28 2023-02-28 Current drinker [facility] 00:[facility]:00 of alcohol Hospital (finding) History of Social 2023-02-28 2023-02-[address] function 00:00:00 00:00:00 Hospital Cigarettes smoked 2022-02-07 2022-02-[address] current (pack per 00:00:00 00:00:00 Hospita l day) - Reported Tobacco use and 2022-02-07 2022-02-07 Smokeless [facility] 00:00:00 00:00:00 tobacco non-user Hospital Sex Ass[birth year] At [birth year] [facility] 00:00:[facility] 00:[facility]:00 Hospital Smoking Status Start Date Stop Date Source Never Smoker [facility] Ex-smoker 2022-02-07 00:00:00 2022-02-07 00:00:00 [facility] Medications Ordered Filled Start Stop Current Ordering Indication Dosage Frequency Signature Comments Components Source Medication Medication Date Date Medication? Clinician (SIG) Name Name cycloSPORIN Yes Apply to Sd thodi E 0.05 % 02-[address] drops 08:12: Hospita 59 l vit 0 Yes 1{tbl} QD Take 1 Methodi C-E-cupric- 02-[address] zinc-lutein 08:12: mouth Hospi ta (PreserVisi 59 daily. l on Lutein) 226-90-0.8- 5 mg capsule fexofenadin Yes 180mg Take 1 Met hodi e (JULIANA) 02-[address] 180 MG 08:12: (180 mg Hospita tablet 59 total) by l mouth as needed. cholecalcif 0 Yes Q.5D Take by Met hodi malcolm, - mouth 2 st vitamin D3, 08:12: (two) Hospi ta 50 mcg 59 times a l (2,000 day. Pt unit) takes 2 capsule tabs. capsule aspirin 0 Yes 81mg Take 1 Methodi (ECOTRIN) 02-28 tablet (81 st 81 MG 08:11: mg total) Hospita enteric 45 by mouth. l coated tablet amLODIPine- 2022-0 4- No 1{capsu QD Take 1 Methodi benazepriL 4-18 04-18 le} capsule by (LotreL) 00:00: 04:59 mouth Hospita 5-10 mg per 00 :00 daily. l capsule multivitami 2022-0 2022- No Take by Sd thodi n-minerals- 2-08 02-[address] lutein 09:34: 00:00 Hospita tablet 01 :00 l multivitami 0 2022- No Take by Sd thodi n-minerals- 2-08 02-[address] lutein 09:34: 00:00 Hospita tablet 01 :00 l cycloSPORIN 0 Yes Apply to Me thodi E 0.05 % [address] drops 09:23: Hospita 11 l vit 0 Yes 1{tbl} QD Take 1 Method[facility] C-E-cupric- 2-08 tablet by zinc-lutein 09:23: mouth Hospi ta (PreserVisi 11 daily. l on Lutein) 226-90-0.8- 5 mg capsule aspirin 0 Yes 81mg Take 1 Methodi (ECOTRIN) 2-08 tablet (81 st 81 MG 09:23: mg total) Hospita enteric 11 by mouth. l coated tablet fexofenadin Yes 180mg Take 1 Met hodi e (JULIANA) 2-[address] 180 MG 09:23: (180 mg Hospita tablet 11 total) by l mouth as needed. cholecalcif 0 Yes 2000U QD Take 1 Met hodi malcolm, 2-[address] vitamin D3, 09:23: (2,000 Hosp sherif 50 mcg 11 Units l (2,000 total) by unit) mouth capsule daily. Pt capsule takes 2 tabs. atorvastati 0 Yes 40mg QD Take 1 Meth chloe n (LIPITOR) 7-25 tablet (40 st 40 mg 00:00: mg total) Hospita tablet 00 by mouth l nightly. atorvastati 2021-0 Yes 40mg QD Take 1 Meth chloe n (LIPITOR) 7-25 tablet (40 st 40 mg 00:00: mg total) Hospita tablet 00 by mouth l nightly. Janumet XR Yes Take by Meth chloe 50-1,000 mg 7-[address] tablet, ER 00:00: Hospita multiphase 00 l 24 hr Janumet XR Yes Take by Meth chloe 50-1,000 mg 7-[address] tablet, ER 00:00: Hospita multiphase 00 l 24 hr testosteron Yes APPLY 6 Met hodi e 12.5 mg/ 5-[address] 1.25 gram 00:00: TOPICALLY Hos fredy (1 %) gel 00 TO SKIN l in ONCE DAILY metered-dos e pump testosteron Yes APPLY 6 Met hodi e 12.5 mg/ 5-[address] 1.25 gram 00:00: TOPICALLY Hos fredy (1 %) gel 00 TO SKIN l in ONCE DAILY metered-dos e pump amLODIPine- 2011-07 Yes 1{capsu QD Take 1 M ethodi benazepriL 2-11 le} capsule by st (LOTREL) 00:00: mouth Hospita 10-20 mg 00 daily. l per capsule amLODIPine- 2011-07 Yes 1{capsu QD Take 1 [...] Comments Source Height 2022-02-23 00:00:00 72 [in_i] [facility] BMI (Body Mass 2022-02-23 00:00:00 29.8 kg/m2 [facility] Body Weight 2022-02-23 00:00:00 220 [lb_av] [facility] WEIGHT 2020-08-25 10:08:09 100 kg WEIGHT 2020-05-04 10:51:39 102.4 kg Systolic blood 2023-02-28 13:07:00 155 mm[Hg] [facility] pressure Diastolic blood 2023-02-28 13:07:00 77 mm[Hg] [facility] pressure Heart rate 2023-02-28 13:07:00 67 /min [facility] Respiratory rate 2023-02-28 13:07:00 12 /min [facility] height 2023-02-28 13:07:00 182.9 cm [facility] Body weight 2023-02-28 13:07:[address] [facility] BMI 2023-02-28 13:07:00 30.38 kg/m2 [facility] Oxygen saturation in 2023-02-28 13:07:00 97 /min [facility] Arterial blood by Pulse oximetry Systolic blood 2022-08-08 15:14:00 137 mm[Hg] Method [facility] pressure Diastolic blood 2022-08-08 15:14:00 72 mm[Hg] [facility] pressure Heart rate 2022-08-08 15:14:00 57 /min [facility] Respiratory rate 2022-08-08 15:14:00 12 /min [facility] Body height 2022-08-08 15:14:[address] [facility] Body weight 2022-08-08 15:14:[address] [facility] BMI 2022-08-08 15:14:00 30.35 kg/m2 [facility] Oxygen saturation in 2022-08-08 15:14:00 96 /min [facility] Arterial blood by Pulse oximetry Procedures Procedure Date / Time Performing Clinician Source Performed CV CARDIAC PET MYOCARDIAL 2023-03-22 22:02:34 [facility] PERFUSION IMAGING TRANSTHORACIC 2023-03-01 00:00:00 [facility] ECHOCARDIOGRAM COMPLETE W CONT STRAIN 3D IF NEEDED ECG 12-LEAD 2022-10-15 19:24:00 [facility] ECG 12-LEAD 2022-08-08 15:26:00 [facility] ECG 12-LEAD 2022-02-07 13:38:00 [facility] TRANSTHORACIC 2022-01-26 00:00:00 [facility] ECHOCARDIOGRAM COMPLETE W CONT STRAIN 3D IF NEEDED Plan of Care Planned Activity Planned Date Details Comments Source Future Scheduled 2023-03-27 COVID-19 VACCINE (#1) [facility] Test 16:15:40 [code = COVID-19 VACCINE (#1)] Future Scheduled 2023-03-27 65+ PNEUMOCOCCAL [facility] Test 16:15:40 VACCINE (1 - PCV) [code = 65+ PNEUMOCOCCAL VACCINE (1 - PCV)] Future Scheduled 2023-03-27 DIABETES: RETINAL EYE [facility] Test 16:15:40 EXAM [code = DIABETES: RETINAL EYE EXAM] Future Scheduled 2023-03-27 DIABETIC FOOT EXAM [facility] Test 16:15:40 [code = DIABETIC FOOT EXAM] Future Scheduled 2023-03-27 URINE MICROALBUMIN [facility] Test 16:15:40 [code = URINE MICROALBUMIN] Future Scheduled 2023-03-27 SHINGLES VACCINES (1 [facility] Test 16:15:40 of 2) [code = SHINGLES VACCINES (1 of 2)] Future Scheduled 2023-03-27 INFLUENZA VACCINE (#1) [facility] Test 16:15:40 [code = INFLUENZA VACCINE (#1)] Future Scheduled 2022-08-20 COVID-19 VACCINE (#1) [facility] Test 08:20:23 [code = COVID-19 VACCINE (#1)] Future Scheduled 2022-08-20 65+ P[facility]OCOCCAL [facility] Test 08:20:23 VACCINE (1 - PCV) [code = 65+ PNEUMOCOCCAL VACCINE (1 - PCV)] Future Scheduled 2022-08-20 DIABETES: RETINAL EYE [facility] Test 08:20:23 EXAM [code = DIABETES: RETINAL EYE EXAM] Future Scheduled 2022-08-20 DIABETIC FOOT EXAM [facility] Test 08:20:23 [code = DIABETIC FOOT EXAM] Future Scheduled 2022-08-20 URINE MICROALBUMIN [facility] Test 08:20:23 [code = URINE MICROALBUMIN] Future Scheduled 2022-08-20 Hepatitis C screening [facility] Test 08:20:23 (procedure) [code = 152469387] Future Scheduled 2022-08-20 SHINGLES VACCINES (1 [facility] Test 08:20:23 of 2) [code = SHINGLES VACCINES (1 of 2)] Future Scheduled 2022-08-20 INFLUENZA VACCINE [facility] Test 08:20:23 [code = INFLUENZA VACCINE] Encounters Start End Encounter Admission Attending Care Care Encounter Source Date/Time Date/Time Type Type Clinicians Facility Department ID 2020-01-18 Outpatient MDA MDA [id number] 13:22:48 Anderso n 2023-03-22 2023-03-22 Orders Dion, 1.2.840.1 [id number] 2100 [id number] Method[facility] 00:00:00 00:00:00 Only Jef Nelson 30251.1.[address] 3.430.2.7 Hospit a .3.426805 l .8 2023-03-22 2023-03-22 Travel 1.2.840.1 1.2.313.260 6329 [id number] Methodi 00:00:00 00:00:[address] 3.430.2.7 0.2.7.3.698 Ho spita .3.581154 084.8 l .8 2023-03-22 2023-03-22 Outpatient [facility] [id number] [place] 00:00:00 00:00:[address] 2023-03-01 2023-03-01 Orders Younis, 1.2.840.1 [id number] 2099 [id number] Method[facility] 00:00:00 00:00:00 Only Jef Nelson 28910.1.[address] 3.430.2.7 Hospit a .3.169313 l .8 2023-02-28 2023-02-28 Office Younis, 1.2.840.1 [id number] 2100 [id number] Methodi 09:00:00 09:28:58 Visit Jef Nelson 18363.1.[address] 3.430.2.7 Hospit a .3.397591 l .8 2023-02-28 2023-02-28 Outpatient [facility] [id number] [place] 00:00:00 00:00:[address] 2023-02-28 2023-02-28 Outpatient YOUNIS, [facility] [id number] [place] 00:00:00 00:00:[address] JEF [address] 2023-02-27 2023-02-27 Travel 1.2.840.1 1.2.228.896 1757 [id number] Methodi 00:00:00 00:00:[address] 3.430.2.7 0.2.7.3.698 Ho spita .3.303893 084.8 l .8 2022-10-16 2022-10-16 Refill [place], 1.2.840.1 [id number] 2099 [id number] Method[facility] 00:00:00 00:00:00 [address]26.1[address] 3.430.2.7 Hospit a .3.594580 l .8 2022-10-15 2022-10-15 Office Younis, 1.2.840.1 [id number] Methodi 13:50:00 14:52:53 Visit Jef Nelson 82434.1.[address] 3.430.2.7 Hospit a .3.364663 l .8 2022-10-15 2022-10-15 Travel 1.2.840.1 1.2.109.470 7819 071611 Methodi 00:00:00 00:00:[address] 3.430.2.7 0.2.7.3.698 Ho spita .3.350120 084.8 l .8 2022-10-15 2022-10-15 Outpatient YOUNIS, [facility] [id number] [place] 00:00:00 00:00:[address] JEF [address] 2022-10-11 2022-10-11 Travel 1.2.840.1 1.2.546.090 1220 [id number] Methodi 00:00:00 00:00:[address] 3.430.2.7 0.2.7.3.698 Ho spita .3.934261 084.8 l .8 2022-08-20 2022-08-20 Outpatient JACQUE ALONSO MDA MDA [id number] 08:58:05 23:59:00 Kevon o debbie 2022-08-20 2022-08-20 Outpatient JACQUE ALONSO MDA MDA [id number] 08:20:20 08:57:00 Kevon o n 2022-08-08 2022-08-08 Office Younis, 1.2.840.1 [id number] 2100 [id number] Methodi 09:30:00 09:46:17 Visit Jef A. 51845.1.[address] 3.430.2.7 Hospit a .3.296486 l .8 2022-08-08 2022-08-08 Office Dion, 1.2.840.1 [id number] 2099 [id number] Methodi 09:30:00 09:46:17 Visit Jef Nelson 41466.1.[address] 3.430.2.7 Hospit a .3.764262 l .8 2022-08-08 2022-08-08 Travel 1.2.840.1 1.2.542.957 7478 350509 Methodi 00:00:00 00:00:[address] 3.430.2.7 0.2.7.3.698 Ho spita .3.894471 084.8 l .8 2022-08-08 2022-08-08 Travel 1.2.840.1 1.2.769.258 6482 [id number] Methodi 00:00:00 00:00:[address] 3.430.2.7 0.2.7.3.698 Ho spita .3.820357 084.8 l .8 2022-06-01 2022-06-01 [facility] [id number] 13:22:31 13:56:43 Kevon o n 2022-02-23 2022-02-23 Outpatient FOG_Burke_R AOSM AOSM [id number] [id number] [facility] 00:00:00 00:00:00 Isaak [id number] [facility] 2022-02-23 2022-02-23 Harriet H AOSM [place] - Ortho [facility] 00:00:00 00:00:00 Anne Ervin PA: [id number] FOG_Ofc dic [facility] [address] Medici [address] [place] [address] , Ph. [id number] 2022-02-23 2022-02-23 Outpatient CLEM Ervin AOSM [id number] c-2 00:00:00 00:00:00 Harriet H [id number] 2022-02-22 2022-02-22 Outpatient FOG_Burke_R AOSM AOSM [id number] [facility] 00:00:00 00:00:00 Isaak [id number] [facility] 2022-02-19 2022-02-19 Outpatient FOG_Burke_R AOSM AOSM [id number] [id number] [facility] 00:00:00 00:00:00 Isaak [id number] [facility] 2022-02-15 2022-02-15 Outpatient TONYA HENRY, PENELOPE MDA [id number] 11:44:37 12:10:17 ANDRZEJ lewis 2022-02-13 2022-02-13 Outpatient JACQUE ALONSO PENELOPE MDA [id number] 06:25:09 23:59:00 Kevon lewis 2022-02-13 2022-02-13 Outpatient JACQUE ALONSO PENELOPE MDA [id number] 06:41:29 06:41:29 Kevon lewis 2022-02-07 2022-02-07 Office Younis, 1.2.840.1 [id number] 2100 [id number] Method[facility] 08:30:00 09:16:36 Visit Jef Nelson 48344.1.[address] 3.430.2.7 Hospit a .3.886731 l .8 2022-02-07 2022-02-07 Travel 1.2.840.1 1.2.887.663 8171 [id number] [facility] 00:00:00 00:00:[address] 3.430.2.7 0.2.7.3.698 Ho spita .3.715546 084.8 l .8 2022-01-26 2022-01-26 Orders Younis, 1.2.840.1 [id number] 2100 [id number] Method[facility] 00:00:00 00:00:00 Only Jef Nelson 57466.1.[address] 3.430.2.7 Hospit a .3.441393 l .8 2022-01-23 2022-01-23 Outpatient [facility] [id number] [place] 00:00:00 00:00:[address] 2022-01-23 2022-01-23 Travel 1.2.840.1 1.2.586.873 0070 [id number] [facility] 00:00:00 00:00:[address] 3.430.2.7 0.2.7.3.698 spita .3.811074 084.8 l .8 2022-01-11 2022-01-11 Outpatient ROGERIO ENGLE MDA MDA [id number] 12:46:31 14:30:20 Kevon lewis 2021-08-10 2021-08-10 Outpatient TONYA FIGUEROA, MDA MDA [id number] 13:38:01 13:49:50 ANDRZEJ lewis 2021-08-02 2021-08-02 Outpatient TONYA NGUYEN, MDA MDA [id number] MD 10:26:29 23:59:00 ARELI lewis 2021-08-02 2021-08-02 Outpatient TONYA NGUYEN, MDA MDA [id number] 10:11:13 10:25:00 ARELI lewis 2021-05-08 2021-05-08 Outpatient ROGERIO ENGLE MDA MDA [id number] 10:04:00 11:55:04 Kevon lewis 2021-01-31 2021-01-31 Outpatient TONYA FIGUEROA, MDA MDA [id number] 14:14:49 14:26:19 ANDRZEJ lewis 2021-01-30 2021-01-30 Outpatient EL ANDEL, MDA MDA [id number] 10:01:02 23:59:00 PAMELA lewis 2021-01-30 2021-01-30 Outpatient EL ANDEL, MDA MDA [id number] 09:47:17 10:00:00 PAMELA lewis 2020-08-25 2020-08-25 Outpatient TONYA KHAN, MDA MDA [id number] 08:36:22 23:59:00 TY rider n 2020-08-25 2020-08-25 Outpatient EL HABRA, MDA MDA [id number] MD 08:36:07 23:59:00 TY Carrasco darieno n 2020-08-25 2020-08-25 Outpatient EL GROSU, MDA MDA [id number] MD 09:41:28 11:03:39 CINDY lewis 2020-08-03 2020-08-03 Outpatient EL HENRY, MDA MDA [id number] MD 09:54:02 10:34:13 ANDRZEJ lewis 2020-08-01 2020-08-01 Outpatient EL HENRY, MDA MDA [id number] MD 10:46:32 23:59:00 ANDRZEJ lewis 2020-08-01 2020-08-01 Outpatient EL HENRY, MDA MDA [id number] MD 11:38:12 11:38:12 ANDRZEJ lewis 2020-07-22 2020-07-22 Outpatient YOUNZAIRE, [facility] [id number] [place] 00:00:00 00:00:00 JEF [address] 2020-07-21 2020-07-21 Outpatient EL HENRY, MDA MDA [id number] 00:00:00 00:00:00 ANDRZEJ lewis 2020-07-20 2020-07-20 Outpatient EL HENRY, MDA MDA [id number] 00:00:00 00:00:00 ANDRZEJ lewis 2020-07-20 2020-07-20 Outpatient EL HENRY, MDA MDA [id number] 00:00:00 00:00:00 ANDRZEJ lewis 2020-05-04 2020-05-04 Outpatient ROGERIO ENGLE MDA MDA [id number] 10:14:19 11:54:27 Kevon lewis 2020-01-19 2020-01-19 Outpatient EL HENRY, MDA MDA [id number] MD 12:39:11 13:03:40 ANDRZEJ lewis 2020-01-19 2020-01-19 Outpatient EL HENRY, MDA MDA [id number] 00:00:00 00:00:00 ANDRZEJ lewis 2020-01-13 2020-01-13 Outpatient TONYA BUENROSTRO MDA MDA [id number] 06:19:52 23:59:00 ULISES lewis 2020-01-13 2020-01-13 Outpatient TONYA BUENROSTRO MDA MDA [id number] 06:10:27 06:18:00 ULISES lewis Results This patient has no known results.
[2023-04-05] MEDS ORDERED: PROMETHAZINE 25 MG TABLET ONE (05:42)
[2023-04-05] MEDS ORDERED: HYDROCODONE/APAP 10/325 TAB ONE (05:42)
[2023-04-05] MEDS ORDERED: IBUPROFEN 400 MG TAB ONE (05:43)
[2023-04-05 06:09] LABS: Absolute Lymphocytes (CBC) 1.2 K/uL (0.7-4.9); Hematocrit 41.6 % (39.6-49.0); Lymphocytes % 16.6 % (15.3-44.8); MCV 91.7 fL (80-100); MPV 9.5 fL (7.6-11.3); Platelets 198 thou/uL (152-406); RBC Red Blood Cell Count 4.53 M/uL (4.33-5.43)
[2023-04-05 06:11] LABS: Protime INR 0.99
[2023-04-05 06:19] LABS: Potassium 3.9 mEq/L (3.5-5.1)
--- NOTE | 2023-04-05 06:27 | ER ---
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 Coronavirus screen: At this time, the client does not indicate any symptoms associated with coronavirus-19. Ebola Screen: No symptoms or risks identified at this time. Initial Sepsis Screen: Does the patient meet any 2 criteria? No. Patient's initial sepsis screen is negative. Does the patient have a suspected source of infection? No. Patient's initial sepsis screen is negative. Risk Assessment: Do you want to hurt yourself or someone else? Patient reports no desire to harm self or others. Onset of symptoms was April 05, 2023 at 04:00. 05:09 Method Of Arrival: Ambulatory bp 05:09 Acuity: VALERIE 4 bp Triage Assessment: 05:09 General: Appears in no apparent distress. Behavior is cooperative, appropriate for age, bp anxious. Pain: Denies pain. EENT: Nares with bleeding noted. Historical: - Allergies: 05:09 No Known Allergies; bp - PMHx: 05:09 DM; bp - Immunization history:: Adult Immunizations up to date. - Social history:: Smoking status: Patient denies any tobacco usage or history of. - Family history:: not pertinent. Screenin:11 [facility] ED Fall Risk Assessment (Adult) History of falling in the last 3 months, bp including since admission No falls in past 3 months (0 pts). Abuse screen: Denies threats or abuse. Denies injuries from another. Nutritional screening: No deficits noted. Tuberculosis screening: No symptoms or risk factors identified. Assessment: 05:12 General: Appears uncomfortable, Behavior is cooperative. Pain: Denies pain. Neuro: ha1 Level of Consciousness is awake, alert, obeys commands, Oriented to person, place, time. Cardiovascular: Patient's skin is warm and dry. Respiratory: Airway is patent Respiratory effort is even, unlabored, Respiratory pattern is regular, symmetrical. EENT: Nares with bleeding noted on right on left pt. states " have been putting pressure on it, but the bleeding is not stopping". Reports nose bleed. . Derm: Skin is pink, warm \\T\\ dry. Musculoskeletal: Circulation, motion, and sensation intact. Range of motion: intact in all extremities. 06:05 Reassessment: Patient and/or family updated on plan of care and expected duration. Pain ha1 level reassessed. Patient is alert, oriented x 3, equal unlabored respirations, skin warm/dry/pink. Vital Signs: 05:09 Weight 97.07 kg; Height 5 ft. 10 in. ; bp 05:11 BP 152 / 87; Pulse 86; Resp 18 S; Temp 98.1; Pulse Ox 96% on R/A; ha1 06:05 BP 162 / 73; Pulse 65; Resp 18; Pulse Ox 95% on R/A; ha1 05:09 Body Mass Index 30.71 (97.07 kg, 177.8 cm) bp ED Course: 05:05 Patient arrived in ED. ag3 05:07 Dennys Rodriguez MD is Attending Physician. sp4 05:09 Arm band placed on. bp 05:10 Triage completed. bp 05:11 Patient has correct armband on for positive identification. Bed in low position. Call bp light in reach. Side rails up X2. Adult w/ patient. 05:30 Inserted saline lock: 22 gauge in left wrist, using aseptic technique. Blood collected. ha1 05:56 Emelia Harris RN is Primary Nurse. ha1 06:24 Gina Torres MD is Referral Physician. sp4 07:00 No provider procedures requiring assistance completed. IV discontinued, intact, ha1 bleeding controlled, No redness/swelling at site. Pressure dressing applied. 07:01 Provided Education on: follow up with ENT. ha1 Administered Medications: 05:40 Drug: Ludlow PO 10 mg-325 mg 1 tabs PO once Route: PO; ha1 07:02 Follow up: Response: No adverse reaction; Pain is decreased; RASS: Alert and Calm (0) ha1 05:40 Drug: Ibuprofen PO 400 mg PO once Route: PO; ha1 07:02 Follow up: Response: No adverse reaction ha1 05:40 Drug: Promethazine PO 25 mg PO once Route: PO; ha1 07:02 Follow up: Response: No adverse reaction ha1 Medication: 07:01 VIS not applicable for this client. ha1 Outcome: 06:27 Discharge ordered by . sp4 07:00 Discharged to home via wheelchair, with family, ha1 07:00 Condition: stable 07:00 Discharge instructions given to patient, family, Instructed on discharge instructions, follow up and referral plans. medication usage, Demonstrated understanding of instructions, follow-up care, medications, Prescriptions given X 2, 07:02 Patient left the ED. ha1 Signatures: Yohan Serrano, RN RN Dawn James ag3 Emelia Harris RN RN ha1 Dennys Rodriguez MD MD sp4 Corrections: (The following items were deleted from the chart) 06:19 05:11 BP 152 / 87; Pulse 86bpm; Resp 18bpm; Spontaneous; Pulse Ox 96% RA; ha1 ha1 06:26 05:12 EENT: Reports nose bleed. ha1 ha1
--- NOTE | 2023-04-05 06:27 | EDPHYS ---
Physician Documentation [facility] Name: Yung Holman Age: 82 yrs Sex: Male : 1940 Arrival Date: 04/05/2023 Time: 05:02 Bed 13 Private MD: ED Physician Dennys Rodriguez HPI: 04/05 05:07 This 82 yrs old Male presents to ER via Unassigned with complaints of Nose sp4 Bleed. 05:32 82-year-old male presents with acute onset of bilateral nosebleed started 1 hour [employer]. sp4 Patient reports moderate nosebleed that he attempted to stop the toilet paper without success. Patient takes baby aspirin once a day. 1 week ago patient developed nosebleeds and he has seen ENT Dr. Torres who have cauterized the bleeding sites in the nasal cavity. Patient again developed nosebleed this morning. . Historical: - Allergies: 05:09 No Known Allergies; bp - PMHx: 05:09 DM; bp - Immunization history:: Adult Immunizations up to date. - Social history:: Smoking status: Patient denies any tobacco usage or history of. - Family history:: not pertinent. ROS: 05:32 Constitutional: Negative for fever, chills, and weight loss, ENT: Negative for injury, sp4 pain, and discharge, bilateral nasal bleed 05:32 All other systems are negative, Exam: 05:32 Constitutional: This is a well developed, well nourished patient who is awake, alert, sp4 and in no acute distress. Head/Face: Normocephalic, atraumatic. Eyes: Pupils equal round and reactive to light, extra-ocular motions intact. Lids and lashes normal. Conjunctiva and sclera are not injected. Cornea within normal limits. Periorbital areas with no swelling, redness, or edema. ENT: Tympanic membranes are normal and external auditory canals are clear. Oropharynx with no redness, swelling, or masses, exudates, or evidence of obstruction, uvula midline. Mucous membranes moist. There is bilateral nasal bleed that is moderate. Appears to be posterior nasal bleed with blood trickling in the back of the mouth. Neck: Trachea midline, no thyromegaly or masses palpated, and no cervical lymphadenopathy. Supple, full range of motion without nuchal rigidity, or vertebral point tenderness. Chest/axilla: Normal chest wall appearance and motion. Nontender with no deformity. No lesions are appreciated. Cardiovascular: Regular rate and rhythm with a normal S1 and S2. No gallops, murmurs, or rubs. Normal PMI, no JVD. No pulse deficits. Respiratory: Lungs have equal breath sounds bilaterally, clear to auscultation and percussion. No rales, rhonchi or wheezes noted. No increased work of breathing, no retractions or nasal flaring. Abdomen/GI: Soft, non-tender, with normal bowel sounds. No distension or tympany. No guarding or rebound. No evidence of tenderness throughout. Back: No spinal tenderness. No costovertebral tenderness. Skin: Warm, dry with normal turgor. Normal color with no rashes, no lesions, and no evidence of cellulitis. MS/ Extremity: Pulses equal, no cyanosis. Neurovascular intact. Full, normal range of motion. Neuro: Awake and alert, GCS 15, oriented to person, place, time, and situation. Cranial nerves II-XII grossly intact. Motor strength 5/5 in all extremities. Sensory grossly intact. Psych: Awake, alert, with orientation to person, place and time. Behavior, mood, and affect are within normal limits Vital Signs: 05:09 Weight 97.07 kg; Height 5 ft. 10 in. ; bp 05:11 BP 152 / 87; Pulse 86; Resp 18 S; Temp 98.1; Pulse Ox 96% on R/A; ha1 06:05 BP 162 / 73; Pulse 65; Resp 18; Pulse Ox 95% on R/A; ha1 05:09 Body Mass Index 30.71 (97.07 kg, 177.8 cm) bp Procedures: 06:15 Epistaxis treatment: Copious amount of bleeding noted from both nares. Treated using sp4 rhino rocket, Bilateral Rhino Rockets. Bleeding stopped. Patient was provided pain medications, tolerated procedure without complications. MDM: 05:39 Patient medically screened. sp4 06:15 Differential diagnosis: nasal fracture, trauma, sinusitis, epistaxis r/t trauma, sp4 spontaneous epistaxis. Data reviewed: vital signs, nurses notes, old medical records, lab test result(s). Consideration of Admission/Observation Escalation of care including admission/observation considered. ED course: Nasal rocket is to fix the problem patient's bleeding has subsided. ED course: Will advise follow-up with ENT Dr. Torres in 3 days for removal of bilateral nasal Rockets. Will provide prescription for tramadol and Phenergan. Also will advised to discontinue aspirin at this time until safe to resume. . 04/05 06:02 Order name: Basic Metabolic Panel; Complete Time: 06:41 EDMS 04/05 06:02 Order name: CBC with Automated Diff; Complete Time: 06:19 EDMS 04/05 06:02 Order name: Protime (+INR); Complete Time: 06:19 EDMS 04/05 05:27 Order name: IV Saline Lock; Complete Time: 05:56 sp4 04/05 05:27 Order name: Labs collected and sent; Complete Time: 05:56 sp4 Administered Medications: 05:40 Drug: [place] PO 10 mg-325 mg 1 tabs PO once Route: PO; ha1 07:02 Follow up: Response: No adverse reaction; Pain is decreased; RASS: Alert and Calm (0) ha1 05:40 Drug: Ibuprofen PO 400 mg PO once Route: PO; ha1 07:02 Follow up: Response: No adverse reaction ha1 05:40 Drug: Promethazine PO 25 mg PO once Route: PO; ha1 07:02 Follow up: Response: No adverse reaction ha1 Disposition Summary: 04/05/23 06:27 Discharge Ordered Problem: new sp4 Symptoms: have improved sp4 Condition: Stable sp4 Diagnosis - Epistaxis sp4 - acute posterior epistaxis sp4 Followup: sp4 - With: Gina Torres MD - When: 2 - 3 days - Reason: Recheck today's complaints Discharge Instructions: - Discharge Summary Sheet sp4 - Nosebleed, Adult, [id number] sp4 Forms: - Patient Portal Instructions sp4 Prescriptions: - Tramadol 50 mg Oral tablet - take 1 tablet ORAL route every 6 hours as needed; 20 tablet; Refills: 0, sp4 Product Selection Permitted - promethazine 25 mg Oral Tablet - take 1 tablet ORAL route every 6 hours As needed; 20 tablet; Refills: 0, sp4 Product Selection Permitted Signatures: Dispatcher [employer] Yohan Taylor RN RN bp Ayala, Heidy, RN RN ha1 Sumit Rodriguezgey, MD MD sp4
[2023-04-05 07:11] VITALS: TEMP 98.1
[2023-04-05 07:17] VITALS: BP 162/73; O2SAT 95
== END 2023-04-05 07:02 | disposition home or self-care (01) ==
LOC: ER 05:02
PROC: 2Y41X5Z Packing of Nasal Region using Packing Material (ICD-10-PCS; principal; 2023-04-05)
DX: R04.0 Epistaxis (principal); Z79.82 Long term (current) use of aspirin
CPT/HCPCS: 30901; 85025; 80048; 36415; 85610; 99284; Q0169